=== PATIENT | male | born 1990 | race Caucasian/White ===

== ENCOUNTER 2016-12-07 03:10 | Emergency (ER) | payer SELFPAY ==
[~2016-12-07] VITALS: Ht 172.7 cm; Wt 65.0 kg
[2016-12-07 03:12] VITALS: BP 180/115; PULSE 97; RESP 16; TEMP 97.7; O2SAT 97
[2016-12-07] MEDS ORDERED: LORazepam 0.5 MG TAB PO ONE (04:45)
--- NOTE | 2016-12-07 04:58 | PD ---
HPI Chief Complaint: OD/ Ingestion Time Seen by Provider: 04:43 Travel History International Travel<30 days: No Contact w/Intl Traveler<30days: No Traveled to known affect area: No History of Present Illness HPI 26-year-old male arrives complaining of confusion and palpitations diaphoresis and forgetfulness which started after he ingested MDMA. The symptoms present for 15 minutes or so however resolved prior to my evaluation in the ER. At the time I evaluation the patient has no pain and mentation has returned to normal. He denies drinking alcohol or abusing other drugs. He has no suicidal or homicidal ideation. Location neuropsychiatric. Severity [id number]. Timing is resolved. PFSH Past Medical History Medical History: Denies Significant Hx Immunizations Current: Yes Past Surgical History Surgical History: No Previous Surgery Social History Alcohol Use: Yes (weekends) Tobacco Use: Yes (2-3 cigs per day) Substance Use: Yes (abhinav) Allergies-Medications (Allergen,Severity, Reaction): Coded Allergies: No Known Allergies (Unverified , 12/07/16) Reported Meds & Prescriptions Reported Meds & Active Scripts Active No Active Prescriptions or Reported Medications Review of Systems Except as stated in HPI: all other systems reviewed are Neg Physical Exam Narrative GENERAL: 26-year-old male well-nourished well-developed SKIN: Warm and dry. HEAD: Atraumatic. Normocephalic. EYES: Pupils equal and round. No scleral icterus. No injection or drainage. ENT: No nasal bleeding or discharge. Mucous membranes pink and moist. NECK: Trachea midline. No JVD. CARDIOVASCULAR: Regular rhythm. Tachycardia RESPIRATORY: No accessory muscle use. Clear to auscultation. Breath sounds equal bilaterally. GASTROINTESTINAL: Abdomen soft, non-tender, nondistended. Hepatic and splenic margins not palpable. MUSCULOSKELETAL: No obvious deformities. No clubbing. No cyanosis. No edema. NEUROLOGICAL: Awake and alert. No obvious cranial nerve deficits. Motor grossly within normal limits. Normal speech. PSYCHIATRIC: Appropriate mood and affect; insight and judgment normal. Data Data Last Documented VS Vital Signs Date Time Temp Pulse Resp B/P Pulse Ox O2 Delivery O2 Flow Rate FiO2 12/07/16 03:12 97.7 97 16 180/115 97 Room Air Repeat BP 120s/70s per RN Orders Lorazepam (Ativan) (1/22/17 04:45) MDM Medical Decision Making Medical Screen Exam Complete: Yes Emergency Medical Condition: Yes Differential Diagnosis Side effect from drug abuse, anxiety, panic attack Narrative Course The patient received Ativan. He reported feeling much better. The symptoms resolved. He is ready for discharge. Precautions against drug abuse endorsed. Diagnosis Primary Impression: MDMA abuse Referrals: Primary Care Physician as needed Additional Instructions: You have a choice when it comes to health care, and we are glad that you chose [facility]. Hopefully, we have met your expectations on today's visit. You are welcome to return to [facility] at any time, as we are committed to meeting the health care needs of our community. Med/Other Pt SpecificInfo: No Change to Meds Scripts No Active Prescriptions or Reported Meds Disposition: 01 DISCHARGE HOME Condition: Paulo Moran MD Dec 07, 2016 04:58
[2016-12-07 05:11] VITALS: BP 120/78; PULSE 96; RESP 20; O2SAT 98
== END 2016-12-07 05:13 | disposition home or self-care (01) ==
LOC: NEPE 03:10
DX: F15.10 Other stimulant abuse, uncomplicated (principal); R00.0 Tachycardia, unspecified; F17.210 Nicotine dependence, cigarettes, uncomplicated
CPT/HCPCS: 99283